=== PATIENT | male | born 1965 | race African-American/Black ===

== ENCOUNTER 2019-06-20 21:41 | Inpatient (IN) | payer MEDICAID ==
[~2019-06-20] VITALS: Ht 172.7 cm; Wt 80.0 kg
[2019-06-20] MEDS ORDERED: METF-960 PO (22:06)
[2019-06-20] MEDS ORDERED: MAG HYDROX/AL HYDROX/SIMETH 30 ML SUSP UDCUP PO ONE (22:15)
[2019-06-20] MEDS ORDERED: SODIUM CHLORIDE 0.9% 1,000 ML IV ONE (22:15)
[2019-06-20] MEDS ORDERED: FAMOTIDINE 10 MG/ML 2 ML VIAL IVP ONE (22:15)
[2019-06-20] MEDS ORDERED: KETOROLAC TROMETHAMINE 30 MG/ML VIAL IVP ONE (22:15)
[2019-06-20] MEDS ORDERED: ONDANSETRON HCL 4 MG/2 ML VIAL IVP ONE (22:15)
[2019-06-20 22:26] LABS: BASOPHILS % (AUTO) 1.2 % (0.0-2.0); EOSINOPHILS % (AUTO) 0.5 % (1.0-6.0); HEMATOCRIT 40.5 % (41-53); HEMOGLOBIN 14.2 g/dL (13.5-17.5); LYMPHOCYTES # (AUTO) 0.7 K/uL (1.0-4.8); LYMPHOCYTES % (AUTO) 12.6 % (22.0-44.0); MEAN CORPUSCULAR HEMOGLOBIN 28.6 pg (26.0-34.0); MEAN CORPUSCULAR VOLUME 82 fL (80-100); MONOCYTES # (AUTO) 0.4 K/uL (0.1-1.0); MONOCYTES % (AUTO) 7.3 % (2.0-9.0); NEUTROPHILS # (AUTO) 4.5 K/uL (1.8-7.7); NEUTROPHILS % (AUTO) 78.4 % (40.0-70.0); PLATELET COUNT (AUTO) 179 K/uL (150-450); RED BLOOD CELL COUNT(AUTO) 4.97 MIL/uL (4.50-5.90); RED CELL DISTRIBUTION WIDTH 12.4 % (11.5-14.5)
[2019-06-20 22:37] LABS: ANION GAP 12 mmol/L (8-16); CALCIUM, TOTAL 8.3 mg/dL (8.8-10.5); CARBON DIOXIDE 21 mmol/L (22-29); CHLORIDE 99 mmol/L (98-107); GLOMERULAR FILTR. RATE CALC > 60 mL/min (>60); GLUCOSE,RANDOM 298 mg/dL (70-110); POTASSIUM 3.5 mmol/L (3.5-5.1); SODIUM SERUM 132 mmol/L (136-145); UREA NITROGEN, BLOOD 21 mg/dL (7-18)
[2019-06-20 22:43] LABS: ALANINE AMINOTRANSFERASE 23 U/L (12-78); ALBUMIN 3.5 g/dL (3.4-5.0); ALKALINE PHOSPHATASE 73 U/L (46-116); ASPARTATE AMINOTRANSFERASE 16 U/L (15-37); BILIRUBIN,TOTAL 0.7 mg/dL (0.1-1.0); LIPASE 36 U/L (73-393)
[2019-06-20] MEDS ORDERED: IOVERSOL 350 MG/ML 100 ML VIAL ONE (23:24)
[2019-06-20] MEDS ORDERED: SODIUM CHLORIDE 0.9% 100 ML ONE (23:24)
[2019-06-21] MEDS ORDERED: MORPHINE SULFATE 2 MG/ML SYRINGE IVP ONE ×2 (00:15→18:15)
[2019-06-21] MEDS ORDERED: ACETAMINOPHEN 500 MG TABLET PO ONE (00:15)
[2019-06-21 00:27] LABS: APPEARANCE,URINE CLEAR (CLEAR); BILIRUBIN,URINE NEGATIVE (NEGATIVE); GLUCOSE, URINE (UA) >=1000 mg/dL (NEGATIVE); KETONES,URINE >=80 mg/dL (NEGATIVE); LEUKOCYTE ESTERASE ,URINE NEGATIVE (NEGATIVE); NITRATE,URINE NEGATIVE (NEGATIVE); OCCULT BLOOD,URINE NEGATIVE (NEGATIVE); PH,URINE 5.5 (5.0-8.0); PROTEIN,URINE TRACE (NEGATIVE); UROBILINOGEN,URINE 0.2 mg/dL (<=1.0)
[2019-06-21] MEDS ORDERED: DiphenhydrAMINE HCL 50 MG/ML VIAL IVP ONE (00:30)
[2019-06-21] MEDS ORDERED: SODIUM CHLORIDE 0.9% 1,000 ML IV ONE ×3 (00:30→06:00)
[2019-06-21] MEDS ORDERED: METOCLOPRAMIDE HCL 5 MG/ML 2 ML VIAL IVP ONE (00:30)
[2019-06-21 00:33] LABS: BACTERIA,URINE None Seen /HPF (None Seen); RBC,URINE None Seen /HPF (0-2); SQUAMOUS EPITHELIAL CELL,UR Rare /LPF (None Seen); WBC,URINE None Seen /HPF (0-5)
[2019-06-21 00:57] LABS: GLUCOSE,POINT OF CARE 281 MG/DL (70-110)
[2019-06-21 01:03] LABS: OSMOLALITY 299 mOS/kg (270-310)
[2019-06-21 01:48] LABS: ABG A-A DIFF O2 10.8 mmHg (10-20.0); ABG BASE EXCESS -7.3 mmol/L (-2.0-3.0); ABG CARBOXYHEMOGLOBIN 0.6 % (0.0-1.5); ABG HCO3 19.4 mmol/L (22.0-26.0); ABG METHEMOGLOBIN 0.2 % (0.0-1.5); ABG OXYGEN CONTENT 19.1 mL/dL (15.0-23.0); ABG OXYGEN SATURATION 98.7 % (95.0-98.0); ABG OXYHEMOGLOBIN 97.9 % (94.0-100.0); ABG PCO2 34 mmHg (35-45); ABG PH 7.349 (7.35-7.450); ABG TOTAL HEMOGLOBIN 13.7 G/dL (12.0-18.0); PO2, ARTERIAL BG 148.5 mmHg (84.0-92.0); SOURCE, BLOOD GAS ARTERIAL; TEMPERATURE, FAHRENHEIT, BG 98.7 FAHREN (96.0-98.6)
[2019-06-21 01:49] LABS: O2 DEVICE,BLOOD GAS CANNULA (ROOM AIR); SITE, BLOOD GAS LFT RADIAL
[2019-06-21] MEDS ORDERED: SODIUM CHLORIDE 0.9% 1,000 ML IV SCH (01:52)
[2019-06-21] MEDS ORDERED: POTASSIUM CHL 20 MEQ/0.45% NS 1,000 ML IV PRN (01:52)
[2019-06-21] MEDS ORDERED: POTASSIUM CHLORIDE 40 MEQ in SODIUM CHLORIDE 0.45% 1,000 ML IV PRN (01:52)
[2019-06-21] MEDS ORDERED: DEXTROSE 5%-0.45% SODIUM CHL 1,000 ML IV PRN (01:52)
[2019-06-21] MEDS ORDERED: SODIUM CHLORIDE 0.45% 1,000 ML IV PRN (01:52)
[2019-06-21] MEDS ORDERED: INSULIN REGULAR, HUMAN 100 UNITS/ML IVP PRN (02:00)
[2019-06-21] MEDS ORDERED: DEXTROSE 50%-WATER 25 GM/50 ML SYRINGE IVP PRN ×2 (02:00→06:00)
[2019-06-21] MEDS ORDERED: INSULIN REGULAR, HUMAN 100 UNITS/ML IVP ONE (02:00)
[2019-06-21 03:08] LABS: ANION GAP 10 mmol/L (8-16); CALCIUM, TOTAL 7.8 mg/dL (8.8-10.5); CARBON DIOXIDE 23 mmol/L (22-29); CHLORIDE 102 mmol/L (98-107); CREATININE 1.03 mg/dL (0.60-1.30); GLOMERULAR FILTR. RATE CALC > 60 mL/min (>60); GLUCOSE,RANDOM 250 mg/dL (70-110); POTASSIUM 3.3 mmol/L (3.5-5.1); SODIUM SERUM 135 mmol/L (136-145); UREA NITROGEN, BLOOD 21 mg/dL (7-18)
[2019-06-21 03:29] LABS: GLUCOSE,POINT OF CARE 202 MG/DL (70-110)
[2019-06-21] MEDS ORDERED: 0.9% SODIUM CHLORIDE 10 ML SYRINGE IVP PRN ×2 (03:30→06:00)
[2019-06-21] MEDS ORDERED: POTASSIUM CHLORIDE 20 MEQ ER TABLET PO ONE (03:30)
[2019-06-21] MEDS ORDERED: ACETAMINOPHEN 325 MG TABLET PO PRN ×2 (03:30→06:00)
[2019-06-21] MEDS ORDERED: ONDANSETRON HCL 4 MG/2 ML VIAL IVP PRN (03:30)
[2019-06-21] MEDS ORDERED: MAGNESIUM SULFATE 2 GM/WATER 50 ML IV PRN (06:00)
[2019-06-21] MEDS ORDERED: MAGNESIUM SULFATE 4 GM/WATER 100 ML IV PRN (06:00)
[2019-06-21 06:24] VITALS: BP 154/92
[2019-06-21] MEDS: INSULIN LISPRO 100 UNITS/ML SQ PRN ×3 (06:29→17:17)
[2019-06-21 06:44] LABS: GLUCOMETER DEV NAME(LOC) 6N.1; GLUCOSE,POINT OF CARE 232 MG/DL (70-110)
[2019-06-21 07:53] LABS: ALBUMIN 3.1 g/dL (3.4-5.0); ANION GAP 12 mmol/L (8-16); CALCIUM, TOTAL 7.7 mg/dL (8.8-10.5); CARBON DIOXIDE 21 mmol/L (22-29); CHLORIDE 102 mmol/L (98-107); CREATININE 0.96 mg/dL (0.60-1.30); GLOMERULAR FILTR. RATE CALC > 60 mL/min (>60); GLUCOSE,RANDOM 252 mg/dL (70-110); POTASSIUM 3.7 mmol/L (3.5-5.1); SODIUM SERUM 135 mmol/L (136-145); UREA NITROGEN, BLOOD 19 mg/dL (7-18)
[2019-06-21 08:18] VITALS: BP 157/89
[2019-06-21] MEDS: MetFORMIN HCL 500 MG TABLET PO SCH ×2 (08:55→17:19)
[2019-06-21] MEDS: PANTOPRAZOLE SODIUM 40 MG DR TABLET PO SCH (08:56)
[2019-06-21] MEDS: DOCUSATE SODIUM 100 MG CAPSULE PO SCH ×2 (08:56→21:00)
[2019-06-21] MEDS: HEPARIN SODIUM,PORCINE 5,000 UNITS/ML VIAL SQ SCH ×3 (09:01→23:45)
[2019-06-21] MEDS: ONDANSETRON HCL 4 MG/2 ML VIAL IVP PRN ×3 (11:19→23:49)
[2019-06-21 11:25] VITALS: BP 148/84
[2019-06-21] MEDS ORDERED: ONDANSETRON HCL 4 MG/2 ML VIAL IVP ONE (12:15)
[2019-06-21] MEDS: MORPHINE SULFATE 2 MG/ML SYRINGE IVP PRN ×3 (12:22→20:57)
[2019-06-21 12:39] LABS: ANION GAP 12 mmol/L (8-16); CALCIUM, TOTAL 7.8 mg/dL (8.8-10.5); CARBON DIOXIDE 21 mmol/L (22-29); CHLORIDE 101 mmol/L (98-107); CREATININE 1.08 mg/dL (0.60-1.30); GLOMERULAR FILTR. RATE CALC > 60 mL/min (>60); GLUCOSE,RANDOM 229 mg/dL (70-110); POTASSIUM 3.6 mmol/L (3.5-5.1); SODIUM SERUM 134 mmol/L (136-145); UREA NITROGEN, BLOOD 17 mg/dL (7-18)
[2019-06-21 14:50] LABS: GLUCOMETER DEV NAME(LOC) 6N.1; GLUCOSE,POINT OF CARE 242 MG/DL (70-110)
[2019-06-21 15:39] VITALS: BP 158/82
[2019-06-21 15:56] LABS: ANION GAP 10 mmol/L (8-16); CARBON DIOXIDE 22 mmol/L (22-29); CHLORIDE 103 mmol/L (98-107); GLOMERULAR FILTR. RATE CALC > 60 mL/min (>60); GLUCOSE,RANDOM 204 mg/dL (70-110); POTASSIUM 3.6 mmol/L (3.5-5.1); SODIUM SERUM 135 mmol/L (136-145); UREA NITROGEN, BLOOD 15 mg/dL (7-18)
[2019-06-21 18:13] LABS: GLUCOMETER DEV NAME(LOC) 4E.2; GLUCOSE,POINT OF CARE 200 MG/DL (70-110)
[2019-06-21] MEDS: METOCLOPRAMIDE HCL 5 MG/ML 2 ML VIAL IVP PRN (18:28)
[2019-06-21 19:41] VITALS: BP 175/88
[2019-06-21] MEDS ORDERED: AmLODIPine BESYLATE 5 MG TABLET PO SCH (20:00)
[2019-06-21 22:44] LABS: GLUCOMETER DEV NAME(LOC) 4E.2; GLUCOSE,POINT OF CARE 172 MG/DL (70-110)
[2019-06-22] VITALS (7 sets, daily range): BP systolic 125–177; BP diastolic 75–98
[2019-06-22] MEDS: MORPHINE SULFATE 2 MG/ML SYRINGE IVP PRN ×6 (00:51→23:46)
[2019-06-22] MEDS: AmLODIPine BESYLATE 10 MG TABLET PO SCH (05:26)
[2019-06-22] MEDS: INSULIN LISPRO 100 UNITS/ML SQ PRN ×4 (05:50→20:55)
[2019-06-22 06:26] LABS: BASOPHILS % (AUTO) 0.1 % (0.0-2.0); EOSINOPHILS % (AUTO) 0 % (1.0-6.0); HEMATOCRIT 37.8 % (41-53); HEMOGLOBIN 13.3 g/dL (13.5-17.5); LYMPHOCYTES % (AUTO) 18.4 % (22.0-44.0); MEAN CORPUSCULAR HEMOGLOBIN 28.5 pg (26.0-34.0); MEAN CORPUSCULAR HGB CONC 35.3 G/dL (31.0-37.0); MEAN CORPUSCULAR VOLUME 81 fL (80-100); MONOCYTES # (AUTO) 0.4 K/uL (0.1-1.0); MONOCYTES % (AUTO) 7.5 % (2.0-9.0); PLATELET COUNT (AUTO) 166 K/uL (150-450); RED BLOOD CELL COUNT(AUTO) 4.69 MIL/uL (4.50-5.90); RED CELL DISTRIBUTION WIDTH 12.3 % (11.5-14.5)
[2019-06-22 06:46] LABS: ALANINE AMINOTRANSFERASE 25 U/L (12-78); ALKALINE PHOSPHATASE 63 U/L (46-116); ANION GAP 9 mmol/L (8-16); ASPARTATE AMINOTRANSFERASE 20 U/L (15-37); BILIRUBIN,TOTAL 0.6 mg/dL (0.1-1.0); CALCIUM, TOTAL 8.1 mg/dL (8.8-10.5); CARBON DIOXIDE 24 mmol/L (22-29); CHLORIDE 98 mmol/L (98-107); CREATININE 0.79 mg/dL (0.60-1.30); GLOMERULAR FILTR. RATE CALC > 60 mL/min (>60); GLUCOSE,RANDOM 180 mg/dL (70-110); PHOSPHORUS 2.1 mg/dL (2.5-4.9); POTASSIUM 3.1 mmol/L (3.5-5.1); SODIUM SERUM 131 mmol/L (136-145); TOTAL PROTEIN, SERUM 6.1 g/dL (6.4-8.2); UREA NITROGEN, BLOOD 10 mg/dL (7-18)
[2019-06-22 06:57] LABS: GLUCOMETER DEV NAME(LOC) 6N.1; GLUCOSE,POINT OF CARE 223 MG/DL (70-110)
[2019-06-22 06:57] LABS: GLUCOMETER DEV NAME(LOC) 6N.1; GLUCOSE,POINT OF CARE 161 MG/DL (70-110)
[2019-06-22] MEDS: PANTOPRAZOLE SODIUM 40 MG DR TABLET PO SCH (08:02)
[2019-06-22] MEDS: DOCUSATE SODIUM 100 MG CAPSULE PO SCH ×2 (08:03→19:40)
[2019-06-22] MEDS: HEPARIN SODIUM,PORCINE 5,000 UNITS/ML VIAL SQ SCH ×3 (08:03→23:16)
[2019-06-22] MEDS: POTASSIUM CHL 10 MEQ/WATER 50 ML IV PRN ×3 (08:03→11:53)
[2019-06-22] MEDS: MetFORMIN HCL 500 MG TABLET PO SCH ×2 (08:03→17:01)
[2019-06-22] MEDS ORDERED: AmLODIPine BESYLATE 10 MG TABLET PO SCH (09:00)
[2019-06-22] MEDS: METOCLOPRAMIDE HCL 5 MG/ML 2 ML VIAL IVP PRN (11:53)
[2019-06-22] MEDS ORDERED: SODIUM CHLORIDE 0.9% 1,000 ML ONE (14:09)
[2019-06-22 14:20] LABS: GLUCOMETER DEV NAME(LOC) 4E.2; GLUCOSE,POINT OF CARE 198 MG/DL (70-110)
[2019-06-22] MEDS: POTASSIUM CHLORIDE 20 MEQ ER TABLET PO PRN (17:01)
[2019-06-22 18:48] LABS: GLUCOMETER DEV NAME(LOC) 4E.2; GLUCOSE,POINT OF CARE 176 MG/DL (70-110)
[2019-06-22] MEDS: ONDANSETRON HCL 4 MG/2 ML VIAL IVP PRN (19:37)
[2019-06-22] MEDS: MAGNESIUM OXIDE 400 MG TABLET PO PRN ×2 (19:40→23:15)
[2019-06-22] MEDS: ZOLPIDEM TARTRATE 5 MG TABLET PO PRN (19:40)
[2019-06-22] MEDS: HydrALAZINE HCL 25 MG TABLET PO SCH (21:46)
[2019-06-23 00:04] LABS: GLUCOMETER DEV NAME(LOC) 4E.2; GLUCOSE,POINT OF CARE 208 MG/DL (70-110)
[2019-06-23 04:59] VITALS: BP 142/92
[2019-06-23] MEDS: INSULIN LISPRO 100 UNITS/ML SQ PRN ×4 (05:55→20:37)
[2019-06-23 07:02] LABS: ANION GAP 6 mmol/L (8-16); CALCIUM, TOTAL 8.2 mg/dL (8.8-10.5); CARBON DIOXIDE 27 mmol/L (22-29); CHLORIDE 95 mmol/L (98-107); GLOMERULAR FILTR. RATE CALC > 60 mL/min (>60); GLUCOSE,RANDOM 167 mg/dL (70-110); POTASSIUM 3.3 mmol/L (3.5-5.1); SODIUM SERUM 128 mmol/L (136-145); UREA NITROGEN, BLOOD 8 mg/dL (7-18)
[2019-06-23] MEDS: MORPHINE SULFATE 2 MG/ML SYRINGE IVP PRN ×3 (08:13→18:58)
[2019-06-23] MEDS: POTASSIUM CHLORIDE 20 MEQ ER TABLET PO PRN (08:13)
[2019-06-23] MEDS: MAGNESIUM OXIDE 400 MG TABLET PO PRN ×3 (08:14→17:32)
[2019-06-23] MEDS: HydrALAZINE HCL 25 MG TABLET PO SCH ×2 (08:15→19:55)
[2019-06-23] MEDS: DOCUSATE SODIUM 100 MG CAPSULE PO SCH ×2 (08:15→19:55)
[2019-06-23] MEDS: AmLODIPine BESYLATE 10 MG TABLET PO SCH (08:15)
[2019-06-23] MEDS: HEPARIN SODIUM,PORCINE 5,000 UNITS/ML VIAL SQ SCH ×3 (08:15→23:17)
[2019-06-23] MEDS: PANTOPRAZOLE SODIUM 40 MG DR TABLET PO SCH (08:15)
[2019-06-23 08:29] VITALS: BP 125/78
[2019-06-23 11:31] VITALS: BP 154/89
[2019-06-23 13:55] LABS: GLUCOMETER DEV NAME(LOC) 4E.2; GLUCOSE,POINT OF CARE 179 MG/DL (70-110)
[2019-06-23 13:55] LABS: GLUCOMETER DEV NAME(LOC) 6N.1; GLUCOSE,POINT OF CARE 203 MG/DL (70-110)
[2019-06-23 17:29] VITALS: BP 140/83
[2019-06-23 19:43] VITALS: BP 130/90
[2019-06-23] MEDS: ZOLPIDEM TARTRATE 5 MG TABLET PO PRN (19:55)
[2019-06-23 23:18] VITALS: BP 119/76
[2019-06-24] MEDS: MORPHINE SULFATE 2 MG/ML SYRINGE IVP PRN ×3 (00:21→08:17)
[2019-06-24 04:31] VITALS: BP 122/84
[2019-06-24 05:44] LABS: GLUCOMETER DEV NAME(LOC) 6N.1; GLUCOSE,POINT OF CARE 232 MG/DL (70-110)
[2019-06-24 05:44] LABS: GLUCOMETER DEV NAME(LOC) 6N.1; GLUCOSE,POINT OF CARE 265 MG/DL (70-110)
[2019-06-24] MEDS: INSULIN LISPRO 100 UNITS/ML SQ PRN ×3 (05:46→17:22)
[2019-06-24 06:16] LABS: GLUCOMETER DEV NAME(LOC) 4E.2; GLUCOSE,POINT OF CARE 253 MG/DL (70-110)
[2019-06-24] MEDS: PANTOPRAZOLE SODIUM 40 MG DR TABLET PO SCH (08:13)
[2019-06-24] MEDS: AmLODIPine BESYLATE 10 MG TABLET PO SCH (08:13)
[2019-06-24 08:14] VITALS: BP 121/86
[2019-06-24] MEDS: HydrALAZINE HCL 25 MG TABLET PO SCH (08:14)
[2019-06-24] MEDS: HEPARIN SODIUM,PORCINE 5,000 UNITS/ML VIAL SQ SCH ×2 (08:18→16:00)
[2019-06-24 08:25] LABS: ANION GAP 4 mmol/L (8-16); CARBON DIOXIDE 32 mmol/L (22-29); CHLORIDE 96 mmol/L (98-107); CREATININE 0.75 mg/dL (0.60-1.30); GLOMERULAR FILTR. RATE CALC > 60 mL/min (>60); GLUCOSE,RANDOM 211 mg/dL (70-110); POTASSIUM 3.5 mmol/L (3.5-5.1); SODIUM SERUM 132 mmol/L (136-145); UREA NITROGEN, BLOOD 8 mg/dL (7-18)
[2019-06-24] MEDS: DOCUSATE SODIUM 100 MG CAPSULE PO SCH (09:00)
[2019-06-24 11:31] LABS: GLUCOMETER DEV NAME(LOC) 6N.1; GLUCOSE,POINT OF CARE 314 MG/DL (70-110)
[2019-06-24] MEDS ORDERED: AMLO10TA7 PO ×2 (15:43→18:02)
[2019-06-24] MEDS ORDERED: AMLO10TA55 PO (15:43)
[2019-06-24] MEDS ORDERED: HYDR25TA84 PO ×2 (15:43)
[2019-06-24] MEDS ORDERED: METF-806 PO (15:43)
[2019-06-24] MEDS ORDERED: GLYB5 PO (15:43)
[2019-06-24 17:25] LABS: GLUCOMETER DEV NAME(LOC) 6N.1; GLUCOSE,POINT OF CARE 335 MG/DL (70-110)
[2019-06-24] MEDS ORDERED: METF-960 PO (18:01)
[2019-06-24] MEDS ORDERED: GLYB2.5 PO (18:02)
[2019-06-24] MEDS ORDERED: LOSA25TA71 PO (18:02)
== END 2019-06-24 18:32 | disposition home or self-care (01) | DRG 420 ==
LOC: EMS 21:41 → 4E 06-21 04:30
PROVIDERS: ADMIT Internal Medicine; ATTEND Internal Medicine
DX: E11.65 Type 2 diabetes mellitus with hyperglycemia (principal); E87.1 Hypo-osmolality and hyponatremia; E86.0 Dehydration; R10.9 Unspecified abdominal pain; E87.6 Hypokalemia; M19.90 Unspecified osteoarthritis, unspecified site
CPT/HCPCS: 74177; 76700; 82805; 83036; 83735; 83930; 84100; 84132; G0378; J1200; J1644; J1815; J1885; J2270; J2405; J2765; J3480; J3490; J7030; J7050